=== PATIENT | male | born 1990 | race Caucasian/White ===

== ENCOUNTER 2017-11-19 05:12 | Emergency (ER) | payer SELFPAY ==
[2017-11-19 07:20] VITALS: BP 139/79; PULSE 60; TEMP 98.1; BMI 38.0
[2017-11-19] MEDS ORDERED: IBUPROFEN 600 MG TABLET (FP) PO ONE ×2 (08:51→08:53)
--- NOTE | 2017-11-19 08:53 | PDOC ---
History of Present Illness - General Chief Complaint: Injury Stated Complaint: ANKLE PAIN Time Seen by Provider: 11/19/17 08:15 History Source: Patient Exam Limitations: No Limitations - History of Present Illness Initial Comments: 11/19/17 08:51 CHIEF COMPLAINT: Injury to right ankle HISTORY OF PRESENT ILLNESS: Patient is a 27-year-old male, denies any significant medical history currently on no medication. Patient states he fell one day ago and twisted right ankle, ankle under body. Now with pain only ambulating to right lateral ankle. Limping upon arrival. No deformity. Occurred: reports: yesterday Severity: reports: moderate Pain Location: reports: lower extremity Method of Injury: Yes: fall Modifying Factors: improves with: cold therapy Loss of Consciousness: no loss of consciousness Associated Symptoms (Fall): denies symptoms Past History - Past Medical History Allergies/Adverse Reactions: Allergies Allergy/AdvReac Type Severity Reaction Status Date / Time No Known Allergies Allergy Verified 11/19/17 07:12 Home Medications: Ambulatory Orders NK [No Known Home Medication] 11/19/17 COPD: No Other medical history: DENIES. - Suicide/Smoking/Psychosocial Hx Smoking History: Never smoked Have you smoked in the past 12 months: No Information on smoking cessation initiated: No Review of Systems - Review of Systems Constitutional: No: Symptoms Reported HEENTM: No: Symptoms Reported Respiratory: No: Symptoms reported Cardiac (ROS): No: Symptoms Reported ABD/GI: No: Symptoms Reported : No: Symptoms Reported Musculoskeletal: Yes: Joint Pain, Joint Swelling. No: Muscle Pain, Muscle Weakness, Neck Pain, Joint Stiffness Integumentary: No: Symptoms Reported, Bruising, Erythema Neurological: No: Symptoms reported, Paresthesia, Tingling, Tremors Hematologic/Lymphatic: No: Symptoms Reported All Other Systems: Reviewed and Negative *Physical Exam - Vital Signs Last Vital Signs Temp Pulse Resp BP Pulse Ox 98.1 F 60 19 139/79 99 11/19/17 07:12 11/19/17 07:12 11/19/17 07:12 11/19/17 07:12 11/19/17 07:12 - Physical Exam General Appearance: Yes: Appropriately Dressed. No: Apparent Distress Neck: negative: Tender lateral, Tender midline Respiratory/Chest: positive: Lungs Clear, Normal Breath Sounds. negative: Respiratory Distress, Accessory Muscle Use Cardiovascular: positive: Regular Rhythm, Regular Rate Extremity: positive: Swelling (right lateral ankle). negative: Normal Range of Motion (realted to pain), Delayed Capillary Refill, Pedal Edema, Calf Tenderness , Erythema, Inflammation Integumentary: positive: Normal Color, Dry, Swelling. negative: Erythema, Ecchymosis, Bruising Neurologic: positive: Alert, Normal Mood/Affect, Normal Response, Motor Strength 5/5 ED Treatment Course - RADIOLOGY Radiology Studies Ordered: Category Date Time Status ANKLE & FOOT-RIGHT* [RAD] Stat Radiology 11/19/17 08:16 Completed Medical Decision Making - Medical Decision Making 11/19/17 08:59 A/P: Patient here for evaluation of right lateral ankle injury sent to x-ray no acute fracture dislocation noted. Marco Antonio wrap placed on, patient with ankle sprain to ice and elevate when at rest, Motrin for pain, follow-up with orthopedics in one week pain persists. *DC/Admit/Observation/Transfer Diagnosis at time of Disposition: Ankle sprain Qualifiers: Encounter type: initial encounter Involved ligament of ankle: other ligament Laterality: right Qualified Code(s): S93.491A - Sprain of other ligament of right ankle, initial encounter - Discharge Dispostion Disposition: HOME Condition at time of disposition: Stable Admit: No - Referrals Referrals: Wayne Reagan MD [Staff Physician] - - Patient Instructions Printed Discharge Instructions: DI for Ankle Sprain Additional Instructions: Your x-ray was officially read by radiology and shows no evidence of fracture or dislocation 1. Please return to the emergency department with any redness, swelling, increased pain, or any other concerns. 2. Keep splint on. 3. Please follow up in the office of Dr. Reagan within a week if pain persists. 4. No weightbearing 5. Ice and elevate when at rest. 6. Motrin for pain - Post Discharge Activity Forms/Work/School Notes: Back to Work
== END 2017-11-19 09:25 | disposition home or self-care (01) ==
LOC: JERFT 05:12 → JER 05:12 → JERFT 09:25
DX: S93.491A Sprain of other ligament of right ankle, initial encounter (principal); X58.XXXA Exposure to other specified factors, initial encounter; Y93.89 Activity, other specified; Y92.9 Unspecified place or not applicable
CPT/HCPCS: 73610-TC-RT-FY; 73630-TC-RT-FY; 99281-25